=== PATIENT | male | born 1970 | race Caucasian/White ===

== ENCOUNTER → 2018-07-30 | Outpatient (CLI) | payer BC | LOC: GMAM 13:30 | PROVIDERS: ATTEND Family Medicine | DX: R53.83 Other fatigue (principal); Z12.5 Encounter for screening for malignant neoplasm of prostate ==

== ENCOUNTER → 2018-07-31 | Outpatient (CLI) | payer BC | LOC: LAB.O 08:36 | PROVIDERS: ATTEND Family Medicine | DX: R94.5 Abnormal results of liver function studies (principal) ==

== ENCOUNTER → 2018-11-19 | Outpatient (CLI) | payer BC | LOC: GMAM 11:18 | PROVIDERS: ATTEND Family Medicine | DX: R94.5 Abnormal results of liver function studies (principal) ==

== ENCOUNTER → 2020-07-24 | Outpatient (CLI) | payer BC ==
--- NOTE | 2020-07-25 10:37 | MRI ---
EXAM: Lumbar Spine w/o Contrast CLINICAL HISTORY: LOW BACK PAIN COMPARISON STUDY: None TECHNICAL: Multiplanar multisequence noncontrast MRI images of the lumbar spine. FINDINGS: The lumbar vertebral bodies are in appropriate anatomic alignment. There is no evidence for fracture. There is mild edema along the anterior inferior aspect of the T12 vertebral body. There are associated degenerative disc changes. The conus medullaris has a normal configuration. T12-L1: Disc height loss and disc desiccation. There is anterior disc protrusion of 3 mm. No canal or foraminal stenosis. L1-2: No disc herniation, canal stenosis or nerve root impingement. There are moderate degenerative changes of facets and ligamentum flavum hypertrophy up to 3 mm. L2-3: No disc herniation, canal stenosis or nerve root impingement. There are [id number] degenerative changes of facets and ligamentum flavum hypertrophy at 3 mm. L3-4: No disc herniation, canal stenosis or nerve root impingement. Moderate degenerative changes of facets and ligamentum flavum hypertrophy at 3 mm. L4-5: Mild disc height loss and mild disc desiccation. Bilateral protrusions into the inferior recess of the exiting foramina without compression of nerve roots. Moderate degenerative changes of facets. Ligamentum flavum hypertrophy up to 5 mm. L5-S1: No disc herniation, canal stenosis or nerve root impingement. Moderate degenerative changes of facets and moderate ligamentum flavum hypertrophy. IMPRESSION: 1. No focal disc herniation, canal stenosis or evidence of neurologic impingement. 2. Bilateral 4 mm disc protrusions at L4-5 do not visibly impinge on the exiting nerve root. 3. [id number] diffuse facet arthropathy. Diffuse 3-5 mm ligamentum flavum hypertrophy. Electronically signed by: Beau Sams MD 07/25/2020 10:36 AM [facility]
== END ==
LOC: MRI 13:30
PROVIDERS: ATTEND Family Medicine
DX: M51.26 Other intervertebral disc displacement, lumbar region (principal); M47.896 Other spondylosis, lumbar region; I10 Essential (primary) hypertension; Z12.5 Encounter for screening for malignant neoplasm of prostate; M24.28 Disorder of ligament, vertebrae